=== PATIENT | female | born 1985 | race Caucasian/White ===

== ENCOUNTER 2017-01-04 14:07 | Day surgery (SDC) | payer OTHER ==
[~2017-01-04] VITALS: Ht 165.1 cm; Wt 72.2 kg
[2017-01-04 15:47] VITALS: Ht 165.1 cm; Wt 72.2 kg
[2017-01-04] MEDS ORDERED: SINGULAIR PO (16:02)
[2017-01-04] MEDS ORDERED: [UNRECOGNIZED DRUG - REMARK] PO (16:02)
[2017-01-04] MEDS ORDERED: BIRTH CONTROL PO (16:02)
[2017-01-04] MEDS ORDERED: FENTAnyl 50 MCG/ML VIAL ONE (16:30)
[2017-01-04] MEDS ORDERED: LIDOCAINE 100 MG SYRINGE ONE (16:30)
[2017-01-04] MEDS ORDERED: PROPOFOL 40 ML ONE (16:30)
[2017-01-04 17:16] VITALS: BP 125/71; PULSE 70; RESP 20
[2017-01-04] MEDS ORDERED: PROPOFOL 20 ML ONE (17:35)
[2017-01-04 18:13] VITALS: RESP 20
[2017-01-04 18:14] VITALS: BP 113/71; PULSE 68; RESP 21
--- NOTE | 2017-01-04 18:44 | OPPN ---
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 Tourniquet Time none EBL none Transfusion required none Biopsy 1: None Grafts/Implants none Tubes/Drains none Complication(s) none Disposition: home Procedure Description Preoperative Diagnosis: After informed consent, with the patient/relatives understanding the procedure, its indications, potential risks and complications, including but not limited to : allergic reaction, bleeding, perforation or infection, and after all pertinent questions were answered to the patients satisfaction, the patient/ relatives signed witnessed informed consent. Following this, premedication was administered slowly IV push under careful cardiovascular and respiratory monitoring with pulse oximetry, automatic blood pressure, and edge cutting machine operator. Once the sedative effect was achieved the patient was place in the left lateral decubitus, the panendoscope was introduced and advanced under visual control. Careful examination of the upper gastrointestinal tract, both on insertion as well as withdrawal of the instrument disclosing the following findings: ESOPHAGUS: the mucosa of the entire esophagus was carefully examined and showed the following findings: There is significant narrowing with a weblike structure in the midesophagus. Balloon dilated to 15 minutes millimeters was utilized to dilate the area resulting in some bleeding that was self-limited. Otherwise the mucosa appears within normal limits. There is no evidence of esophagitis, varices, neoplasm. No Hiatal Hernia identified. STOMACH: Upon entrance to the stomach air was insufflated, the gastric pelaez distended normally. The mucosa of the fundus, body and antrum of the stomach was carefully examined both head-on and on retroflexion, and showed the following findings: []the mucosa appears within normal limits with no abnormalities. There is no evidence of gastritis, ulcers or neoplasm. PYLORUS: The pylorus was carefully examined and showed the following findings: []the pylorus appears patent and within normal limits, with no evidence of gastric outlet obstruction. DUODENUM: The duodenal mucosa was carefully examined in the duodenal bulb as well as the second portion of the duodenum and showed the following findings: []the mucosa appears unremarkable with no evidence of duodenitis, ulcer or neoplasm. Copies To: CC: ROBIN LEGGETT MD, MORDO MD Jan 04, 2017 18:44
== END 2017-01-04 19:08 | disposition home or self-care (01) ==
LOC: GIL 14:07
PROVIDERS: ATTEND Internal Medicine Gastroenterology
DX: K22.2 Esophageal obstruction (principal); J45.909 Unspecified asthma, uncomplicated
CPT/HCPCS: 43249; 84703; J2001; J3010; Z7610

== ENCOUNTER 2017-03-10 12:13 | Day surgery (SDC) | END 2017-03-10 18:44 | disposition home or self-care (01) ==

== ENCOUNTER 2017-11-11 12:09 | Day surgery (SDC) | END 2017-11-11 14:55 | disposition home or self-care (01) ==